=== PATIENT | female | born 1950 | race Caucasian/White ===

== ENCOUNTER 2016-09-01 17:22 | Emergency (ER) | payer BC ==
[~2016-09-01] VITALS: Ht 162.6 cm; Wt 90.0 kg
[2016-09-01] MEDS ORDERED: METFORMIN HCL850 MG PO (18:01)
[2016-09-01] MEDS ORDERED: RAMIPRIL5 MG PO (18:02)
[2016-09-01] MEDS ORDERED: LO-DOSE ASPIRIN81 M2 PO (18:03)
[2016-09-01] MEDS ORDERED: FENOFIBRATE145 M1 PO (18:03)
[2016-09-01] MEDS ORDERED: VERAPAMIL HCL180 MG PO (18:03)
[2016-09-01] MEDS ORDERED: MOTRIN800 MG PO (19:57)
[2016-09-01 20:12] VITALS: BP 137/81
== END 2016-09-01 20:13 | disposition home or self-care (01) ==
LOC: EME 17:22 → EXP 17:22
DX: M72.2 Plantar fascial fibromatosis (principal); M79.661 Pain in right lower leg; M79.671 Pain in right foot; E11.9 Type 2 diabetes mellitus without complications; E78.5 Hyperlipidemia, unspecified; I10 Essential (primary) hypertension; I73.9 Peripheral vascular disease, unspecified; Z79.82 Long term (current) use of aspirin; Z79.84 Long term (current) use of oral hypoglycemic drugs
CPT/HCPCS: 73630; 93971; 99281; 99284